=== PATIENT | female | born 1960 | race Caucasian/White ===

== ENCOUNTER 2016-10-30 12:21 | Observation (INO) | payer MEDICARE ==
--- NOTE | 2016-10-30 12:54 | EDM.PDOC ---
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 She states that this happens when her magnesium level is low. History of IBS with diarrhea leading to hypomagnesemia requiring frequent IV magnesium infusions. She reports a complex medical history since March 2016 when she was hospitalized for an infection to a port that was placed in her right upper chest and developed an abscess in her right neck. 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 She now has an implanted recording device placed below her sternum. She denies chest pain shortness of breath and difficulty breathing. She admits to having a twinge to her left substernal area which has been constant for the past 24 hours. She states that this pain is consistent with when her magnesium level has been low in the past. Patient has felt feverish for the past 24 hours and wants to be checked for infection. Since her hospitalizations within the last year she is very vigilant about being evaluated when she feels feverish. She has not checked her temperature. Denies headaches sore throat earaches. Admits to nausea. No abdominal pain or vomiting. No burning with urination blood in her urine or urinary frequency. No change in her bowels. No swelling to her feet or lower legs.] Review of systems: As per history of present illness and below otherwise all systems reviewed and negative. Past medical history: As per history of present illness and as reviewed below otherwise noncontributory. Surgical history: As per history of present illness and as reviewed below otherwise noncontributory. Social history: No reported history of drug or alcohol abuse. Family history: As per history of present illness and as reviewed below otherwise noncontributory. Physical exam: HEENT: Atraumatic, normocephalic. Oral mucous membranes are pink and moist. neck supple, nontender. Lungs: Clear to auscultation, breath sounds equal bilaterally, chest nontender. Heart: S1S2, regular rate and rhythm. Abdomen: Soft, nondistended, nontender. Negative for masses guarding or rebound. Negative for costovertebral tenderness. Pelvis: Stable nontender. Genitourinary: Deferred. Rectal: Deferred. Extremities: Atraumatic, negative for cords or calf pain. No cyanosis or edema to feet or lower legs. Neurovascular unremarkable. Neuro: Awake, alert, oriented. Is pleasant and conversational. Appears to be Reliable historian. Motor and sensory unremarkable throughout. Exam nonfocal. Diagnostics: [CBC, CMP, lactic acid, urinalysis, urine culture, ammonia level, chest x-ray EKG, troponin] Therapeutics: [Zofran 4 mg IV] Impression: [Chest pain, hypomagnesemia] Plan: [Magnesium level 0.9. EKG shows normal sinus rhythm. No acute changes or ST elevation. Discussed patient's condition with Dr. Fisher who agrees to observe patient overnight with telemetry. Patient is in agreement with this plan.] Definitive disposition and diagnosis as appropriate pending reevaluation and review of above. chest tightness Pain Score (Numeric/FACES): 7 - Related Data Allergies Allergy/AdvReac Type Severity Reaction Status Date / Time amlodipine Allergy Joint Pain Verified 10/30/16 12:25 chlorpromazine Allergy Hallucinati Verified 10/30/16 12:25 [From Thorazine] ons codeine Allergy Airway Verified 10/30/16 12:25 Tightness hydromorphone Allergy Rash Verified 10/30/16 12:25 oxycodone HCl [From Percocet] Allergy Hallucinati Verified 10/30/16 12:25 ons pregabalin [From Lyrica] Allergy Joint Pain Verified 10/30/16 12:25 rofecoxib [From Vioxx] Allergy Joint Pain Verified 10/30/16 12:25 statins Allergy Nausea and Uncoded 10/30/16 12:25 Vomiting Home Meds: Home Meds ALPRAZolam [Alprazolam] 0.5 mg PO BID 10/30/16 [History] Carvedilol 25 mg PO BID 10/30/16 [History] Lisinopril 10 mg PO BEDTIME 10/30/16 [History] Omeprazole 20 mg PO BIDAC 10/30/16 [History] Ondansetron [IMW: Ondansetron ODT] 4 mg PO .EVERY 6 HOURS PRN 10/30/16 [History] Warfarin Sodium [Jantoven] 5 mg PO ASDIRECTED 10/30/16 [History] metFORMIN HCl [Metformin HCl] 1,000 mg PO BID 10/30/16 [History] Past Medical History - Past Health History Medical/Surgical History: Denies Medical/Surgical History HEENT History: Reports: None Cardiovascular History: Reports: Hypertension, [place] Respiratory History: Reports: Asthma Gastrointestinal History: Reports: GERD, Irritable Bowel Syndrome Genitourinary History: Reports: None 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: , Other (See Below) Other OB/BYN History: vaginal ablation Musculoskeletal History: Reports: None Other Musculoskeletal History: 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 feet Neurological History: Reports: Migraines, Neuropathy, Peripheral Psychiatric History: Reports: None Other Psychiatric History: Claustrophobic Endocrine/Metabolic History: Reports: Diabetes, Type II Hematologic History: Reports: None Other Hematologic History: Low Magnesium Immunologic History: Reports: None Oncologic (Cancer) History: Reports: None Dermatologic History: Reports: None - Infectious Disease History Infectious Disease History: Reports: MRSA - Past Surgical History Cardiovascular Surgical History: Reports: Coronary Artery Stent, Pacer Female Surgical History: Reports: None Neurological Surgical History: Reports: Discectomy, Lumbar Spine Musculoskeletal Surgical History: Reports: Other (See Below) Social & Family History - Family History Family Medical History: Noncontributory Cardiac: Reports: Hypertension, [place] Neurological: Reports: TIA Psychiatric: Reports: Anxiety, Depression Endocrine/Metabolic: Reports: Diabetes, type II Oncologic: Reports: Brain, Other (See Below) Other Oncologic Family History: Spinova spindle - Tobacco Use Smoking Status *Q: Never Smoker Second Hand Smoke Exposure: No - Alcohol Use Days Per Week of Alcohol Use: 0 - Recreational Drug Use Recreational Drug Use: No ED ROS GENERAL - Review of Systems Review Of Systems: ROS reveals no pertinent complaints other than HPI. ED EXAM, GENERAL - Physical Exam Exam: See Below Course - Vital Signs Last Recorded V/S: Last Vital Signs Temp 97.8 F 10/30/16 12:26 Pulse 73 10/30/16 16:04 Resp 16 10/30/16 16:04 BP 124/65 10/30/16 16:04 Pulse Ox 94 L 10/30/16 16:04 - Orders/Labs/Meds Orders: Active Orders 24 hr Category Date Time Status EKG Documentation Completion [RC] STAT Care 10/30/16 12:51 Active Medication Orders Acetaminophen (Tylenol) 650 mg PO Q4H PRN PRN Reason: Pain (Mild 1-3)/fever Alprazolam (Xanax) 0.5 mg PO BID [facility] Carvedilol (Coreg) 25 mg PO BID [facility] Cephalexin (Keflex) 500 mg PO Q6HR [facility] Docusate Sodium (Colace) 100 mg PO BID PRN PRN Reason: Constipation Magnesium Sulfate 4 gm/ Premix 100 mls @ 50 mls/hr IV ONETIME ONE Stop: 10/30/16 16:43 Last Admin: 10/30/16 15:54 Dose: 50 mls/hr Sodium Chloride (Normal Saline) 1,000 mls @ 50 mls/hr IV NOW STA Stop: 10/31/16 11:48 Last Admin: 10/30/16 15:55 Dose: 50 mls/hr Lisinopril (Prinivil) 10 mg PO BEDTIME [facility] Metformin HCl (Glucophage) 1,000 mg PO BID [facility] Omeprazole (Omeprazole) 20 mg PO BIDAC [facility] Ondansetron HCl (Zofran Odt) 4 mg PO Q4H PRN PRN Reason: nausea, able to take PO Sodium Chloride (Saline Flush) 10 ml FLUSH ASDIRECTED PRN PRN Reason: Keep Vein Open Sodium Chloride (Saline Flush) 2.5 ml FLUSH ASDIRECTED PRN PRN Reason: Keep Vein Open Temazepam (Restoril) 15 mg PO BEDTIME PRN PRN Reason: Sleep Warfarin Sodium (Coumadin) 5 mg PO ASDIRECTED [facility] Labs: Laboratory Tests 10/30/16 10/30/16 10/30/16 Range/Units 12:30 12:30 12:30 WBC 8.94 (4.0-11.0) K/uL RBC 3.80 L (4.30-5.90) M/uL Hgb 10.9 L (12.0-16.0) g/dL Hct 32.4 L (36.0-46.0) % MCV 85.3 (80.0-98.0) fL MCH 28.7 (27.0-32.0) pg MCHC 33.6 (31.0-37.0) g/dL RDW Std Deviation 50.4 (28.0-62.0) fl RDW Coeff of Nay 16 H (11.0-15.0) % Plt Count 250 (150-400) K/uL MPV 8.90 (7.40-12.00) fL Neut % (Auto) 58.6 (48.0-80.0) % Lymph % (Auto) 31.2 (16.0-40.0) % [place] % (Auto) 7.3 (0.0-15.0) % Eos % (Auto) 2.5 (0.0-7.0) % Baso % (Auto) 0.4 (0.0-1.5) % Neut # (Auto) 5.2 (1.4-5.7) K/uL Lymph # (Auto) 2.8 H (0.6-2.4) K/uL [place] # (Auto) 0.7 (0.0-0.8) K/uL Eos # (Auto) 0.2 (0.0-0.7) K/uL Baso # (Auto) 0.0 (0.0-0.1) K/uL Nucleated RBC % 0.0 /100WBC Nucleated RBCs # 0 K/uL INR (0.86-1.11) Lactate 1.8 (0.20-2.00) mmol/L Sodium 135 L (136-146) mmol/L Potassium 4.8 (3.5-5.1) mmol/L Chloride 103 (98-110) mmol/L Carbon Dioxide 20 L (21-31) mmol/L BUN 20 (6.0-23.0) mg/dL Creatinine 0.9 (0.6-1.5) mg/dL Est Cr Clr Drug Dosing 82.46 mL/min Estimated GFR (MDRD) > 60.0 ml/min Glucose 119 H (60-110) mg/dL Calcium 9.3 (8.8-10.8) mg/dL Magnesium (1.5-2.3) mEq/L Total Bilirubin 0.3 (0.1-1.5) mg/dL AST 9 (5-40) IU/L ALT 11 (8-54) IU/L Alkaline Phosphatase 63 (40-150) Troponin I (0.0-0.29) NG/ML Total Protein 7.6 (6.0-8.0) g/dL Albumin 4.1 (3.5-5.0) g/dL Globulin 3.5 (2.0-3.5) g/dL Albumin/Globulin Ratio 1.2 L (1.3-2.8) Urine Color Urine Appearance Urine pH (5.0-8.0) Ur Specific [place] (1.001-1.035) Urine Protein (NEGATIVE) mg/dL Urine Glucose (UA) (NEGATIVE) mg/dL Urine Ketones (NEGATIVE) mg/dL Urine Occult Blood (NEGATIVE) Urine Nitrite (NEGATIVE) Urine Bilirubin (NEGATIVE) Urine Urobilinogen (<2.0) EU/dL Ur Leukocyte Esterase (NEGATIVE) Urine RBC (0-2/HPF) Urine WBC (0-5/HPF) Ur Epithelial Cells (NONE-FEW) Urine Bacteria (NEGATIVE) 10/30/16 10/30/16 10/30/16 Range/Units 12:30 12:30 12:55 WBC (4.0-11.0) K/uL RBC (4.30-5.90) M/uL Hgb (12.0-16.0) g/dL Hct (36.0-46.0) % MCV (80.0-98.0) fL MCH (27.0-32.0) pg MCHC (31.0-37.0) g/dL RDW Std Deviation (28.0-62.0) fl RDW Coeff of Nay (11.0-15.0) % Plt Count (150-400) K/uL MPV (7.40-12.00) fL Neut % (Auto) (48.0-80.0) % Lymph % (Auto) (16.0-40.0) % [place] % (Auto) (0.0-15.0) % Eos % (Auto) (0.0-7.0) % Baso % (Auto) (0.0-1.5) % Neut # (Auto) (1.4-5.7) K/uL Lymph # (Auto) (0.6-2.4) K/uL [place] # (Auto) (0.0-0.8) K/uL Eos # (Auto) (0.0-0.7) K/uL Baso # (Auto) (0.0-0.1) K/uL Nucleated RBC % /100WBC Nucleated RBCs # K/uL INR 1.78 H (0.86-1.11) Lactate (0.20-2.00) mmol/L Sodium (136-146) mmol/L Potassium (3.5-5.1) mmol/L Chloride (98-110) mmol/L Carbon Dioxide (21-31) mmol/L BUN (6.0-23.0) mg/dL Creatinine (0.6-1.5) mg/dL Est Cr Clr Drug Dosing mL/min Estimated GFR (MDRD) ml/min Glucose (60-110) mg/dL Calcium (8.8-10.8) mg/dL Magnesium 0.9 L (1.5-2.3) mEq/L Total Bilirubin (0.1-1.5) mg/dL AST (5-40) IU/L ALT (8-54) IU/L Alkaline Phosphatase (40-150) Troponin I < 0.10 (0.0-0.29) NG/ML Total Protein (6.0-8.0) g/dL Albumin (3.5-5.0) g/dL Globulin (2.0-3.5) g/dL Albumin/Globulin Ratio (1.3-2.8) Urine Color Urine Appearance Urine pH (5.0-8.0) Ur Specific [place] (1.001-1.035) Urine Protein (NEGATIVE) mg/dL Urine Glucose (UA) (NEGATIVE) mg/dL Urine Ketones (NEGATIVE) mg/dL Urine Occult Blood (NEGATIVE) Urine Nitrite (NEGATIVE) Urine Bilirubin (NEGATIVE) Urine Urobilinogen (<2.0) EU/dL Ur Leukocyte Esterase (NEGATIVE) Urine RBC (0-2/HPF) Urine WBC (0-5/HPF) Ur Epithelial Cells (NONE-FEW) Urine Bacteria (NEGATIVE) 10/30/16 Range/Units 13:40 WBC (4.0-11.0) K/uL RBC (4.30-5.90) M/uL Hgb (12.0-16.0) g/dL Hct (36.0-46.0) % MCV (80.0-98.0) fL MCH (27.0-32.0) pg MCHC (31.0-37.0) g/dL RDW Std Deviation (28.0-62.0) fl RDW Coeff of Nay (11.0-15.0) % Plt Count (150-400) K/uL MPV (7.40-12.00) fL Neut % (Auto) (48.0-80.0) % Lymph % (Auto) (16.0-40.0) % [place] % (Auto) (0.0-15.0) % Eos % (Auto) (0.0-7.0) % Baso % (Auto) (0.0-1.5) % Neut # (Auto) (1.4-5.7) K/uL Lymph # (Auto) (0.6-2.4) K/uL [place] # (Auto) (0.0-0.8) K/uL Eos # (Auto) (0.0-0.7) K/uL Baso # (Auto) (0.0-0.1) K/uL Nucleated RBC % /100WBC Nucleated RBCs # K/uL INR (0.86-1.11) Lactate (0.20-2.00) mmol/L Sodium (136-146) mmol/L Potassium (3.5-5.1) mmol/L Chloride (98-110) mmol/L Carbon Dioxide (21-31) mmol/L BUN (6.0-23.0) mg/dL Creatinine (0.6-1.5) mg/dL Est Cr Clr Drug Dosing mL/min Estimated GFR (MDRD) ml/min Glucose (60-110) mg/dL Calcium (8.8-10.8) mg/dL Magnesium (1.5-2.3) mEq/L Total Bilirubin (0.1-1.5) mg/dL AST (5-40) IU/L ALT (8-54) IU/L Alkaline Phosphatase (40-150) Troponin I (0.0-0.29) NG/ML Total Protein (6.0-8.0) g/dL Albumin (3.5-5.0) g/dL Globulin (2.0-3.5) g/dL Albumin/Globulin Ratio (1.3-2.8) Urine Color YELLOW Urine Appearance CLEAR Urine pH 5.5 (5.0-8.0) Ur Specific [place] 1.010 (1.001-1.035) Urine Protein NEGATIVE (NEGATIVE) mg/dL Urine Glucose (UA) NEGATIVE (NEGATIVE) mg/dL Urine Ketones NEGATIVE (NEGATIVE) mg/dL Urine Occult Blood NEGATIVE (NEGATIVE) Urine Nitrite NEGATIVE (NEGATIVE) Urine Bilirubin NEGATIVE (NEGATIVE) Urine Urobilinogen 0.2 (<2.0) EU/dL Ur Leukocyte Esterase LARGE (NEGATIVE) Urine RBC 0-2 (0-2/HPF) Urine WBC 6-8 (0-5/HPF) Ur Epithelial Cells MODERATE (NONE-FEW) Urine Bacteria FEW (NEGATIVE) Meds: Medications Generic Name Dose Route Start Last Admin Trade Name Freq PRN Reason Stop Dose Admin Acetaminophen 650 mg 10/30/16 14:37 Tylenol PO Q4H PRN Pain (Mild 1-3)/fever Alprazolam 0.5 mg 10/30/16 21:00 Xanax PO BID [facility] Carvedilol 25 mg 10/30/16 21:00 Coreg PO BID [facility] Cephalexin 500 mg 10/30/16 18:00 Keflex PO Q6HR [facility] Docusate Sodium 100 mg 10/30/16 14:37 Colace PO BID PRN Constipation Magnesium Sulfate 4 gm/ Premix 100 mls @ 50 mls/hr 10/30/16 14:44 10/30/16 15 :54 IV 10/30/16 16:43 50 mls/hr ONETIME ONE Administration Sodium Chloride 1,000 mls @ 50 mls/hr 10/30/16 15:49 10/30/16 15:55 Normal Saline IV 10/31/16 11:48 50 mls/hr NOW STA Administration Lisinopril 10 mg 10/30/16 21:00 Prinivil PO BEDTIME [facility] Metformin HCl 1,000 mg 10/30/16 21:00 Glucophage PO BID [facility] Omeprazole 20 mg 10/30/16 17:00 Omeprazole PO BIDAC [facility] Ondansetron HCl 4 mg 10/30/16 14:37 Zofran Odt PO Q4H PRN nausea, able to take PO Sodium Chloride 10 ml 10/30/16 14:37 Saline Flush FLUSH ASDIRECTED PRN Keep Vein Open Sodium Chloride 2.5 ml 10/30/16 14:37 Saline Flush FLUSH ASDIRECTED PRN Keep Vein Open Temazepam 15 mg 10/30/16 14:37 Restoril PO BEDTIME PRN Sleep Warfarin Sodium 5 mg 10/30/16 15:15 Coumadin PO ASDIRECTED [facility] Discontinued Medications Generic Name Dose Route Start Last Admin Trade Name Freq PRN Reason Stop Dose Admin Ondansetron HCl 4 mg 10/30/16 14:34 10/30/16 14:44 Zofran IVPUSH 10/30/16 14:35 4 mg ONETIME ONE Administration Ondansetron HCl 4 mg 10/30/16 14:42 Zofran Odt PO .EVERY 6 HOURS PRN Nausea Warfarin Sodium 5 mg 10/31/16 14:00 Coumadin PO ASDIRECTED [facility] Departure - Departure Time of Disposition: 14:37 Disposition: Refer to Observation Condition: Good Clinical Impression: Hypomagnesemia Chest pain Qualifiers: Chest pain type: unspecified Qualified Code(s): R07.9 - Chest pain, unspecified - My Orders Last 24 Hours: My Active Orders 10/30/16 12:51 EKG Documentation Completion [RC] STAT - Assessment/Plan Last 24 Hours: My Active Orders 10/30/16 12:51 EKG Documentation Completion [RC] STAT
[2016-10-30 13:21] LABS: CHLORIDE,CL 103 mmol/L (98-110); SODIUM,NA 135 mmol/L (136-146)
[2016-10-30] MEDS ORDERED: Ondansetron 4 MG/2 ML SDV IVPUSH ONE (14:34)
[2016-10-30] MEDS ORDERED: Ondansetron 4 MG Tab.DIS PO PRN ×2 (14:37→14:42)
[2016-10-30] MEDS ORDERED: Acetaminophen 325 MG Tab PO PRN (14:37)
[2016-10-30] MEDS ORDERED: Sodium Chloride 0.9% 2.5 ML Syringe FLUSH PRN (14:37)
[2016-10-30] MEDS ORDERED: Sodium Chloride 0.9% 10 ML Syringe FLUSH PRN (14:37)
[2016-10-30] MEDS ORDERED: Temazepam 15 MG Cap PO PRN (14:37)
[2016-10-30] MEDS ORDERED: Docusate Sodium 100 MG Cap PO PRN (14:37)
[2016-10-30] MEDS ORDERED: Magnesium Sulfate/Water 4 GM in Premix Bag 1 BAG IV ONE (14:44)
[2016-10-30] MEDS ORDERED: Warfarin 5 MG Tab PO SCH (15:15)
--- NOTE | 2016-10-30 15:25 | CR ---
EXAMINATION: Two-view chest (PA and Lateral views). HISTORY: Shortness of breath. FINDINGS: The trachea is midline. The cardiomediastinal silhouette is within normal limits. No pulmonary infil trates, effusions or pneumothorax. Coronary stents noted. Mild degenerative changes are noted within the thoracic spine. IMPRESSION: No acute cardiopulmonary process.
[2016-10-30] MEDS ORDERED: Sodium Chloride 0.9% 1,000 ML IV STA (15:49)
[2016-10-30] MEDS: Omeprazole 20 MG Cap.CR PO SCH (18:47)
[2016-10-30] MEDS: Cephalexin 500 MG Cap PO SCH ×2 (18:47→22:59)
[2016-10-30] MEDS ORDERED: Magnesium Sulfate/Water 2 GM in Premix Bag 1 BAG IV ONE (19:58)
--- NOTE | 2016-10-30 20:08 | PCM.HP ---
H&P History of Present Illness - General Date of Service: 10/30/16 Admit Problem/Dx: Admission Diagnosis/Problem Admission Diagnosis/Problem Chest pain Source of Information: Patient, Provider - History of Present Illness Initial Comments - Free Text/Narative: She has a history of severe IBS with chronic diarrhea and recurrent hypomagnesemia thought secondary to GI losses. She thought that her Mg level was low because she felt that she was having "PVC 's". She also noted some vague chest discomfort which has subsequently resolved. She thinks that she might have had a recent fever for a few days. chest tightness Pain Score (Numeric/FACES): 7 - Related Data Allergies/Adverse Reactions: Allergies Allergy/AdvReac Type Severity Reaction Status Date / Time amlodipine Allergy Joint Pain Verified 10/30/16 12:25 chlorpromazine Allergy Hallucinati Verified 10/30/16 12:25 [From Thorazine] ons codeine Allergy Airway Verified 10/30/16 12:25 Tightness hydromorphone Allergy Rash Verified 10/30/16 12:25 oxycodone HCl [From Percocet] Allergy Hallucinati Verified 10/30/16 12:25 ons pregabalin [From Lyrica] Allergy Joint Pain Verified 10/30/16 12:25 rofecoxib [From Vioxx] Allergy Joint Pain Verified 10/30/16 12:25 statins Allergy Nausea and Uncoded 10/30/16 12:25 Vomiting Home Medications: Home Meds ALPRAZolam [Alprazolam] 0.5 mg PO BID 10/30/16 [History] Carvedilol 25 mg PO BID 10/30/16 [History] Furosemide [Lasix] 40 mg PO Q48H PRN 10/30/16 [History] Lisinopril 10 mg PO BEDTIME 10/30/16 [History] Omeprazole 20 mg PO BIDAC 10/30/16 [History] Ondansetron [IMW: Ondansetron ODT] 4 mg PO .EVERY 6 HOURS PRN 10/30/16 [History] Warfarin Sodium [Jantoven] 5 mg PO ASDIRECTED 10/30/16 [History] metFORMIN HCl [Metformin HCl] 1,000 mg PO BID 10/30/16 [History] Past Medical History - Past Health History Medical/Surgical History: Denies Medical/Surgical History HEENT History: Reports: None Cardiovascular History: Reports: Hypertension, CA Other Cardiovascular History: pacemaker placed for periods of asystole Respiratory History: Reports: Asthma Gastrointestinal History: Reports: GERD, Irritable Bowel Syndrome Genitourinary History: Reports: None Other Genitourinary History: lesion on left kidney STAFF ANESTHETIST History: Reports: , Other (See Below) Other OB/BYN History: vaginal ablation Musculoskeletal History: Reports: None Other Musculoskeletal History: 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 feet Neurological History: Reports: Migraines, Neuropathy, Peripheral Psychiatric History: Reports: None Other Psychiatric History: Claustrophobic Endocrine/Metabolic History: Reports: Diabetes, Type II Hematologic History: Reports: None, Other (See Below) (history of DVT; she is on warfarin currently) Other Hematologic History: Low Magnesium Immunologic History: Reports: None Other Immunologic History: history of recurrent sepsis Oncologic (Cancer) History: Reports: None Dermatologic History: Reports: None - Infectious Disease History Infectious Disease History: Reports: MRSA Other Infectious Disease History: history of recurrent sepsis - Past Surgical History Cardiovascular Surgical History: Reports: Coronary Artery Stent, Pacer Female Surgical History: Reports: None Neurological Surgical History: Reports: Discectomy, Lumbar Spine Musculoskeletal Surgical History: Reports: Other (See Below) Social & Family History - Family History Family Medical History: Noncontributory Cardiac: Reports: Hypertension, [place] Neurological: Reports: TIA Psychiatric: Reports: Anxiety, Depression Endocrine/Metabolic: Reports: Diabetes, type II Oncologic: Reports: Brain, Other (See Below) Other Oncologic Family History: Spinova spindle - Tobacco Use Smoking Status *Q: Never Smoker Second Hand Smoke Exposure: No - Caffeine Use Caffeine Use: Reports: Coffee, Soda, Tea - Alcohol Use Days Per Week of Alcohol Use: 0 Alcohol Use Comment: she drinks alcohol less than one time per month. - Recreational Drug Use Recreational Drug Use: No H&P Review of Systems - Review of Systems: Review Of Systems: See Below General: Reports: Fever, Chills HEENT: Denies: Sore Throat Pulmonary: Denies: Shortness of Breath, Cough, Sputum Cardiovascular: Reports: Chest Pain (as per HPI now resolved). Denies: Edema Gastrointestinal: Denies: Abdominal Pain, Black Stool, Bloody Stool, Hematemesis , Hematochezia, Melena Genitourinary: Denies: Dysuria, Frequency, Hematuria Exam - Exam Exam: See Below - Vital Signs Vital Signs: Last Vital Signs Temp 97.7 F 10/30/16 16:00 Pulse 73 10/30/16 16:04 Resp 16 10/30/16 16:04 BP 124/65 10/30/16 16:04 Pulse Ox 94 L 10/30/16 16:04 Weight: 102.965 kg - Exam General: Alert, Oriented HEENT: EOMI, Mucosa Moist & [place] Neck: Supple, Trachea Midline Lungs: Clear to Auscultation, Normal Respiratory Effort Cardiovascular: Regular Rate, Regular Rhythm Abdomen: Soft. No: Distention, Tenderness (Female) Exam: Deferred Rectal (Female) Exam: Deferred Extremities: No: Calf Tenderness, Edema Neurological: Cranial Nerves Intact, Normal Speech Neuro Extensive - Mental Status: Normal Mood/Affect Neuro Extensive - Motor, Sensory, Reflexes: No: Facial palsy (L), Facial Palsy ( R), Hemeplagia (R), Hemeplagia (L) Psychiatric: Alert, Normal Affect. No: Depressed - Patient Data Lab Results Last 24 hrs: Laboratory Results - last 24 hr 10/30/16 10/30/16 10/30/16 Range/Units 16:10 19:05 19:05 Magnesium 1.8 (1.5-2.3) mEq/L Ammonia 156 H (14-68) UG/DL Troponin I < 0.10 (0.0-0.29) NG/ML Result Diagrams: 10/30/16 12:30 10/30/16 12:30 Imaging Impressions Last 24 hrs: sinus rhythm; RBBB; LAFB ; borderline LVH CXR: No acute disease *Q Meaningful Use (ADM) - VTE *Q VTE Criteria *Q: - Stroke *Q Stroke Criteria *Q: - AMI *Q AMI Criteria *Q: - Problem List (1) Serum ammonia increased SNOMED Code(s): 2241090 ICD Code: E72.20 - DISORDER OF UREA CYCLE METABOLISM, UNSPECIFIED Status: Acute Current Visit: Yes (2) Chest pain SNOMED Code(s): 75221878 ICD Code: R07.9 - CHEST PAIN, UNSPECIFIED Status: Acute Current Visit: Yes Qualifiers: Chest pain type: unspecified Qualified Code(s): R07.9 - Chest pain, unspecified (3) Hypomagnesemia SNOMED Code(s): 375643495 ICD Code: E83.42 - HYPOMAGNESEMIA Status: Acute Current Visit: Yes (4) History of DVT (deep vein thrombosis) SNOMED Code(s): 679452235 ICD Code: Z86.718 - PERSONAL HISTORY OF OTHER VENOUS THROMBOSIS AND EMBOLISM Status: Acute Current Visit: Yes (5) UTI (urinary tract infection) SNOMED Code(s): 95396428 ICD Code: N39.0 - URINARY TRACT INFECTION, SITE NOT SPECIFIED Status: Acute Current Visit: Yes Problem List Initiated/Reviewed/Updated: Yes Orders Last 24hrs: Active Orders 24 hr Category Date Time Status Patient Status [ADT] Routine ADT 10/30/16 14:37 Active Oxygen Therapy [RC] PRN Care 10/30/16 14:37 Active Oxygen Therapy [RC] PRN Care 10/30/16 14:44 Active Telemetry Monitoring [Cardiac Monitoring] [RC] . Care 10/30/16 14:40 Active DIRECTED VTE/DVT Education [RC] PER UNIT ROUTINE Care 10/30/16 14:37 Active VTE/DVT Education [RC] PER UNIT ROUTINE Care 10/30/16 14:44 Active Vital Signs [RC] Q4H Care 10/30/16 14:37 Active Vital Signs [RC] Q4H Care 10/30/16 14:44 Active Regular Diet [DIET] Diet 10/30/16 Dinner Active Abdomen Ltd [US] Routine Exams 10/31/16 07:00 Ordered AMMONIA VENOUS [CHEM] AM Lab 11/01/16 05:11 Ordered BASIC METABOLIC PANEL,BMP [CHEM] AM Lab 10/31/16 05:11 Ordered CBC WITH AUTO DIFF [HEME] Timed Lab 10/31/16 05:00 Ordered COMPREHENSIVE METABOLIC PN,CMP [CHEM] AM Lab 11/01/16 05:11 Ordered INR,PT,PROTHROMBIN TIME [COAG] Routine Lab 10/31/16 07:00 Ordered MAGNESIUM [CHEM] Routine Lab 11/01/16 07:00 Ordered TROPONIN I [CHEM] Q6H Lab 10/31/16 01:00 Ordered TROPONIN I [CHEM] Q6H Lab 10/31/16 07:00 Ordered ALPRAZolam [Xanax] Med 10/30/16 21:00 Active 0.5 mg PO BID Acetaminophen [Tylenol] Med 10/30/16 14:37 Active 650 mg PO Q4H PRN Carvedilol [Coreg] Med 10/30/16 21:00 Active 25 mg PO BID Cephalexin [Keflex] Med 10/30/16 18:00 Active 500 mg PO Q6HR Ciprofloxacin [Ciprofloxacin HCl] Med 10/30/16 21:00 Ordered 500 mg PO BID Docusate Sodium [Colace] Med 10/30/16 14:37 Active 100 mg PO BID PRN Lisinopril [Prinivil] Med 10/30/16 21:00 Active 10 mg PO BEDTIME Magnesium Sulfate/Water [Magnesium Sulfate 2 GM in Med 10/30/16 19:58 Ordered Water 50 ML] 2 gm Premix Bag 1 bag IV ONETIME Omeprazole Med 10/30/16 17:00 Active 20 mg PO BIDAC Ondansetron [Zofran ODT] Med 10/30/16 14:37 Active 4 mg PO Q4H PRN Sodium Chloride 0.9% [Saline Flush] Med 10/30/16 14:37 Active 10 ml FLUSH ASDIRECTED PRN Sodium Chloride 0.9% [Saline Flush] Med 10/30/16 14:37 Active 2.5 ml FLUSH ASDIRECTED PRN Temazepam [Restoril] Med 10/30/16 14:37 Active 15 mg PO BEDTIME PRN Warfarin [Coumadin] Med 10/30/16 15:15 Active 5 mg PO ASDIRECTED metFORMIN [Glucophage] Med 10/30/16 21:00 Active 1,000 mg PO BID Saline Lock Insert [OM.PC] Routine Oth 10/30/16 14:37 Ordered Resuscitation Status Routine Resus Stat 10/30/16 14:37 Ordered Medication Orders Acetaminophen (Tylenol) 650 mg PO Q4H PRN PRN Reason: Pain (Mild 1-3)/fever Last Admin: 10/30/16 19:18 Dose: 650 mg Alprazolam (Xanax) 0.5 mg PO BID [facility] Carvedilol (Coreg) 25 mg PO BID [facility] Cephalexin (Keflex) 500 mg PO Q6HR [facility] Last Admin: 10/30/16 18:47 Dose: 500 mg Ciprofloxacin (Ciprofloxacin Hcl) 500 mg PO BID [facility] Docusate Sodium (Colace) 100 mg PO BID PRN PRN Reason: Constipation Magnesium Sulfate 2 gm/ Premix 50 mls @ 25 mls/hr IV ONETIME ONE Stop: 10/30/16 21:57 Lisinopril (Prinivil) 10 mg PO BEDTIME [facility] Metformin HCl (Glucophage) 1,000 mg PO BID [facility] Omeprazole (Omeprazole) 20 mg PO BIDAC [facility] Last Admin: 10/30/16 18:47 Dose: 20 mg Ondansetron HCl (Zofran Odt) 4 mg PO Q4H PRN PRN Reason: nausea, able to take PO Sodium Chloride (Saline Flush) 10 ml FLUSH ASDIRECTED PRN PRN Reason: Keep Vein Open Sodium Chloride (Saline Flush) 2.5 ml FLUSH ASDIRECTED PRN PRN Reason: Keep Vein Open Temazepam (Restoril) 15 mg PO BEDTIME PRN PRN Reason: Sleep Warfarin Sodium (Coumadin) 5 mg PO ASDIRECTED [facility] Last Admin: 10/30/16 18:48 Dose: 5 mg Assessment/Plan Comment:: observation Mg supplementation anticipated discharge tomorrow. Brandon Fisher MD
[2016-10-30] MEDS: Carvedilol 25 MG Tab PO SCH (20:56)
[2016-10-30] MEDS: metFORMIN 500 MG Tab PO SCH (20:56)
[2016-10-30] MEDS: Ciprofloxacin 500 MG Tab PO SCH (20:56)
[2016-10-30] MEDS: ALPRAZolam 0.5 MG Tab PO SCH (20:57)
[2016-10-30] MEDS ORDERED: Lisinopril 10 MG Tab PO SCH (21:00)
[2016-10-30] MEDS ORDERED: Acetaminophen/HYDROcodone 325-10 MG Tab PO PRN (22:06)
[2016-10-31 07:47] LABS: CHLORIDE,CL 103 mmol/L (98-110); SODIUM,NA 136 mmol/L (136-146)
[2016-10-31] MEDS: Cephalexin 500 MG Cap PO SCH ×2 (09:05→11:13)
[2016-10-31] MEDS: metFORMIN 500 MG Tab PO SCH (09:06)
[2016-10-31] MEDS: ALPRAZolam 0.5 MG Tab PO SCH (09:06)
[2016-10-31] MEDS: Carvedilol 25 MG Tab PO SCH (09:06)
[2016-10-31] MEDS: Ciprofloxacin 500 MG Tab PO SCH (09:06)
[2016-10-31] MEDS: Omeprazole 20 MG Cap.CR PO SCH (09:06)
[2016-10-31 09:07] VITALS: BP 110/64
--- NOTE | 2016-10-31 11:11 | US ---
EXAMINATION: Right upper quadrant ultrasound HISTORY: Cirrhosis COMPARISON: None TECHNIQUE: Grayscale and color Doppler images obtained of the right upper quadrant. FINDINGS: The visualized pancreas appears normal. The liver is mildly to moderately increased in gen eralized echotexture without a focal hepatic mass. Cholecystectomy. Common bile duct measures 3 mm. Right kidney measures at least 10.3 cm [id number] without evidence of hydronephrosis. No abdominal ascites. IMPRESSION: 1. Mild to moderate fatty infiltration of the liver.
[2016-10-31] MEDS ORDERED: Warfarin 5 MG, Warfarin 2.5 MG PO SCH ×2 (14:00)
[2016-10-31] MEDS ORDERED: Warfarin 5 MG Tab PO SCH (14:00)
--- NOTE | 2016-10-31 15:16 | PCM.DCSUM1 ---
Discharge Summary - Hospital Course Brief History: she was admitted with hypomagnesemia and suspected UTI. - Discharge Data Discharge Date: 10/31/16 Discharge Disposition: Home, Self-Care 01 Condition: Fair - Discharge Diagnosis/Problem(s) (1) Serum ammonia increased SNOMED Code(s): 3310580 ICD Code: E72.20 - DISORDER OF UREA CYCLE METABOLISM, UNSPECIFIED Status: Acute Current Visit: Yes (2) Chest pain SNOMED Code(s): 76014696 ICD Code: R07.9 - CHEST PAIN, UNSPECIFIED Status: Acute Current Visit: Yes Qualifiers: Chest pain type: unspecified Qualified Code(s): R07.9 - Chest pain, unspecified (3) Hypomagnesemia SNOMED Code(s): 749251016 ICD Code: E83.42 - HYPOMAGNESEMIA Status: Acute Current Visit: Yes (4) History of DVT (deep vein thrombosis) SNOMED Code(s): 094394171 ICD Code: Z86.718 - PERSONAL HISTORY OF OTHER VENOUS THROMBOSIS AND EMBOLISM Status: Acute Current Visit: Yes (5) UTI (urinary tract infection) SNOMED Code(s): 64077741 ICD Code: N39.0 - URINARY TRACT INFECTION, SITE NOT SPECIFIED Status: Acute Current Visit: Yes - Patient Summary/Data Hospital Course: She was given Magnesium sulfate intravenously . Her magnesium level went from 0.9 to 2.4 Her serum ammonia was measured in the ED because she was drowsy. It remained elevated at levels of 157 and 156 taken on two occasions. She has no history of heavy alcohol use. she was treated with rocephin and cipro for suspected UTI. Impression: hypomagnesemia on warfarin for history of PE asymptomatic elevated serum ammonia level of uncertain etiology UTI discharge home she wants to wait until she gets back home to [place] next month to see a asic engineer. keflex 500 qid x 5 days mg level with next INR Brandon Fisher MD - Discharge Plan Home Medications: Home Meds ALPRAZolam [Alprazolam] 0.5 mg PO BID 10/30/16 [History] Carvedilol 25 mg PO BID 10/30/16 [History] Furosemide [Lasix] 40 mg PO Q48H PRN 10/30/16 [History] Lisinopril 10 mg PO BEDTIME 10/30/16 [History] Omeprazole 20 mg PO BIDAC 10/30/16 [History] Ondansetron [IMW: Ondansetron ODT] 4 mg PO .EVERY 6 HOURS PRN 10/30/16 [History] Warfarin Sodium [Jantoven] 5 mg PO ASDIRECTED 10/30/16 [History] metFORMIN HCl [Metformin HCl] 1,000 mg PO BID 10/30/16 [History] Forms: ED Department Discharge Referrals: PCP,None [Primary Care Provider] - - Patient Data Vitals - Most Recent: Last Vital Signs Temp 97.5 F 10/31/16 12:00 Pulse 71 10/31/16 12:00 Resp 16 10/31/16 12:00 BP 110/64 10/31/16 12:00 Pulse Ox 97 10/31/16 12:00 Weight - Most Recent: 102.965 kg I&O - Last 24 hours: Intake & Output 10/31/16 10/31/16 10/31/16 06:59 14:59 22:59 Intake Total 500 Output Total 2100 Balance -1600 Lab Results - Last 24 hrs: Laboratory Results - last 24 hr 10/30/16 10/30/16 10/30/16 Range/Units 16:10 19:05 19:05 WBC (4.0-11.0) K/uL RBC (4.30-5.90) M/uL Hgb (12.0-16.0) g/dL Hct (36.0-46.0) % MCV (80.0-98.0) fL MCH (27.0-32.0) pg MCHC (31.0-37.0) g/dL RDW Std Deviation (28.0-62.0) fl RDW Coeff of Nay (11.0-15.0) % Plt Count (150-400) K/uL MPV (7.40-12.00) fL Neut % (Auto) (48.0-80.0) % Lymph % (Auto) (16.0-40.0) % [place] % (Auto) (0.0-15.0) % Eos % (Auto) (0.0-7.0) % Baso % (Auto) (0.0-1.5) % Neut # (Auto) (1.4-5.7) K/uL Lymph # (Auto) (0.6-2.4) K/uL [place] # (Auto) (0.0-0.8) K/uL Eos # (Auto) (0.0-0.7) K/uL Baso # (Auto) (0.0-0.1) K/uL Nucleated RBC % /100WBC Nucleated RBCs # K/uL INR (0.86-1.11) Sodium (136-146) mmol/L Potassium (3.5-5.1) mmol/L Chloride (98-110) mmol/L Carbon Dioxide (21-31) mmol/L BUN (6.0-23.0) mg/dL Creatinine (0.6-1.5) mg/dL Est Cr Clr Drug Dosing mL/min Estimated GFR (MDRD) ml/min Glucose (60-110) mg/dL Calcium (8.8-10.8) mg/dL Magnesium 1.8 (1.5-2.3) mEq/L Ammonia 156 H (14-68) UG/DL Troponin I < 0.10 (0.0-0.29) NG/ML 10/31/16 10/31/16 10/31/16 Range/Units 00:47 07:10 07:10 WBC 7.25 (4.0-11.0) K/uL RBC 3.80 L (4.30-5.90) M/uL Hgb 10.8 L (12.0-16.0) g/dL Hct 32.8 L (36.0-46.0) % MCV 86.3 (80.0-98.0) fL MCH 28.4 (27.0-32.0) pg MCHC 32.9 (31.0-37.0) g/dL RDW Std Deviation 51.7 (28.0-62.0) fl RDW Coeff of Nay 16 H (11.0-15.0) % Plt Count 225 (150-400) K/uL MPV 8.50 (7.40-12.00) fL Neut % (Auto) 50.6 (48.0-80.0) % Lymph % (Auto) 38.1 (16.0-40.0) % [place] % (Auto) 7.9 (0.0-15.0) % Eos % (Auto) 3.0 (0.0-7.0) % Baso % (Auto) 0.4 (0.0-1.5) % Neut # (Auto) 3.7 (1.4-5.7) K/uL Lymph # (Auto) 2.8 H (0.6-2.4) K/uL [place] # (Auto) 0.6 (0.0-0.8) K/uL Eos # (Auto) 0.2 (0.0-0.7) K/uL Baso # (Auto) 0.0 (0.0-0.1) K/uL Nucleated RBC % 0.0 /100WBC Nucleated RBCs # 0 K/uL INR (0.86-1.11) Sodium (136-146) mmol/L Potassium (3.5-5.1) mmol/L Chloride (98-110) mmol/L Carbon Dioxide (21-31) mmol/L BUN (6.0-23.0) mg/dL Creatinine (0.6-1.5) mg/dL Est Cr Clr Drug Dosing mL/min Estimated GFR (MDRD) ml/min Glucose (60-110) mg/dL Calcium (8.8-10.8) mg/dL Magnesium (1.5-2.3) mEq/L Ammonia (14-68) UG/DL Troponin I < 0.10 < 0.10 (0.0-0.29) NG/ML 10/31/16 10/31/16 10/31/16 Range/Units 07:10 07:10 07:10 WBC (4.0-11.0) K/uL RBC (4.30-5.90) M/uL Hgb (12.0-16.0) g/dL Hct (36.0-46.0) % MCV (80.0-98.0) fL MCH (27.0-32.0) pg MCHC (31.0-37.0) g/dL RDW Std Deviation (28.0-62.0) fl RDW Coeff of Nay (11.0-15.0) % Plt Count (150-400) K/uL MPV (7.40-12.00) fL Neut % (Auto) (48.0-80.0) % Lymph % (Auto) (16.0-40.0) % [place] % (Auto) (0.0-15.0) % Eos % (Auto) (0.0-7.0) % Baso % (Auto) (0.0-1.5) % Neut # (Auto) (1.4-5.7) K/uL Lymph # (Auto) (0.6-2.4) K/uL [place] # (Auto) (0.0-0.8) K/uL Eos # (Auto) (0.0-0.7) K/uL Baso # (Auto) (0.0-0.1) K/uL Nucleated RBC % /100WBC Nucleated RBCs # K/uL INR 1.73 H (0.86-1.11) Sodium 136 (136-146) mmol/L Potassium 4.8 (3.5-5.1) mmol/L Chloride 103 (98-110) mmol/L Carbon Dioxide 22 (21-31) mmol/L BUN 17 (6.0-23.0) mg/dL Creatinine 0.9 (0.6-1.5) mg/dL Est Cr Clr Drug Dosing 82.58 mL/min Estimated GFR (MDRD) > 60.0 ml/min Glucose 107 (60-110) mg/dL Calcium 9.6 (8.8-10.8) mg/dL Magnesium 2.4 H (1.5-2.3) mEq/L Ammonia (14-68) UG/DL Troponin I (0.0-0.29) NG/ML 10/31/16 Range/Units 08:15 WBC (4.0-11.0) K/uL RBC (4.30-5.90) M/uL Hgb (12.0-16.0) g/dL Hct (36.0-46.0) % MCV (80.0-98.0) fL MCH (27.0-32.0) pg MCHC (31.0-37.0) g/dL RDW Std Deviation (28.0-62.0) fl RDW Coeff of Nay (11.0-15.0) % Plt Count (150-400) K/uL MPV (7.40-12.00) fL Neut % (Auto) (48.0-80.0) % Lymph % (Auto) (16.0-40.0) % [place] % (Auto) (0.0-15.0) % Eos % (Auto) (0.0-7.0) % Baso % (Auto) (0.0-1.5) % Neut # (Auto) (1.4-5.7) K/uL Lymph # (Auto) (0.6-2.4) K/uL [place] # (Auto) (0.0-0.8) K/uL Eos # (Auto) (0.0-0.7) K/uL Baso # (Auto) (0.0-0.1) K/uL Nucleated RBC % /100WBC Nucleated RBCs # K/uL INR (0.86-1.11) Sodium (136-146) mmol/L Potassium (3.5-5.1) mmol/L Chloride (98-110) mmol/L Carbon Dioxide (21-31) mmol/L BUN (6.0-23.0) mg/dL Creatinine (0.6-1.5) mg/dL Est Cr Clr Drug Dosing mL/min Estimated GFR (MDRD) ml/min Glucose (60-110) mg/dL Calcium (8.8-10.8) mg/dL Magnesium (1.5-2.3) mEq/L Ammonia 157 H (14-68) UG/DL Troponin I (0.0-0.29) NG/ML Med Orders - Current: Current Medications Acetaminophen (Tylenol) 650 mg PO Q4H PRN PRN Reason: Pain (Mild 1-3)/fever Last Admin: 10/30/16 19:18 Dose: 650 mg Hydrocodone Bitart/Acetaminophen ([place] 325-10 Mg) 1 tab PO Q3H PRN PRN Reason: Pain Last Admin: 10/30/16 22:58 Dose: 1 tab Alprazolam (Xanax) 0.5 mg PO BID [facility] Last Admin: 10/31/16 09:06 Dose: 0.5 mg Carvedilol (Coreg) 25 mg PO BID [facility] Last Admin: 10/31/16 09:06 Dose: 25 mg Cephalexin (Keflex) 500 mg PO Q6HR [facility] Last Admin: 10/31/16 11:13 Dose: 500 mg Ciprofloxacin (Ciprofloxacin Hcl) 500 mg PO BID [facility] Last Admin: 10/31/16 09:06 Dose: 500 mg Docusate Sodium (Colace) 100 mg PO BID PRN PRN Reason: Constipation Lisinopril (Prinivil) 10 mg PO BEDTIME [facility] Last Admin: 10/30/16 20:57 Dose: 10 mg Metformin HCl (Glucophage) 1,000 mg PO BID [facility] Last Admin: 10/31/16 09:06 Dose: 1,000 mg Omeprazole (Omeprazole) 20 mg PO BIDAC [facility] Last Admin: 10/31/16 09:06 Dose: 20 mg Ondansetron HCl (Zofran Odt) 4 mg PO Q4H PRN PRN Reason: nausea, able to take PO Sodium Chloride (Saline Flush) 10 ml FLUSH ASDIRECTED PRN PRN Reason: Keep Vein Open Sodium Chloride (Saline Flush) 2.5 ml FLUSH ASDIRECTED PRN PRN Reason: Keep Vein Open Temazepam (Restoril) 15 mg PO BEDTIME PRN PRN Reason: Sleep Warfarin Sodium (Coumadin) 5 mg PO SuMoWeThFrSa@1400 [facility] Warfarin Sodium 5 mg/ Warfarin (Sodium 2.5 mg) 7.5 mg PO Tu@1400 [facility] Last Admin: 10/31/16 13:05 Dose: 7.5 mg Discontinued Medications Magnesium Sulfate 4 gm/ Premix 100 mls @ 50 mls/hr IV ONETIME ONE Stop: 10/30/16 16:43 Last Admin: 10/30/16 15:54 Dose: 50 mls/hr Sodium Chloride (Normal Saline) 1,000 mls @ 50 mls/hr IV NOW STA Stop: 10/31/16 11:48 Last Admin: 10/30/16 15:55 Dose: 50 mls/hr Magnesium Sulfate 2 gm/ Premix 50 mls @ 25 mls/hr IV ONETIME ONE Stop: 10/30/16 21:57 Last Admin: 10/30/16 20:54 Dose: 25 mls/hr Ondansetron HCl (Zofran) 4 mg IVPUSH ONETIME ONE Stop: 10/30/16 14:35 Last Admin: 10/30/16 14:44 Dose: 4 mg Ondansetron HCl (Zofran Odt) 4 mg PO .EVERY 6 HOURS PRN PRN Reason: Nausea Warfarin Sodium (Coumadin) 5 mg PO ASDIRECTED [facility] Warfarin Sodium (Coumadin) 5 mg PO ASDIRECTED [facility] Last Admin: 10/30/16 18:48 Dose: 5 mg *Q Meaningful Use (DIS) - VTE *Q VTE Criteria *Q: - Stroke *Q Stroke Criteria *Q: - AMI *Q AMI Criteria *Q:
[2016-11-01] MEDS ORDERED: Warfarin 5 MG Tab PO SCH (14:00)
== END 2016-10-31 16:15 | disposition home or self-care (01) ==
LOC: MW.ED 12:21 → MW.MS 14:36
PROVIDERS: ADMIT Family Medicine; ATTEND Family Medicine
DX: R07.89 Other chest pain (principal); E72.20 Disorder of urea cycle metabolism, unspecified; E83.42 Hypomagnesemia; N39.0 Urinary tract infection, site not specified; I25.2 Old myocardial infarction; I10 Essential (primary) hypertension; J45.909 Unspecified asthma, uncomplicated; K21.9 Gastro-esophageal reflux disease without esophagitis; Z95.5 Presence of coronary angioplasty implant and graft; F32.9 Major depressive disorder, single episode, unspecified; F41.9 Anxiety disorder, unspecified; Z86.718 Personal history of other venous thrombosis and embolism; E11.9 Type 2 diabetes mellitus without complications; Z79.84 Long term (current) use of oral hypoglycemic drugs; Z79.899 Other long term (current) drug therapy; Z86.73 Personal history of transient ischemic attack (TIA), and cerebral infarction without residual deficits; Z98.890 Other specified postprocedural states
CPT/HCPCS: 36415; 71020; 76705; 80048; 80053; 81001; 82140; 83605; 83735; 84484; 85025; 85610; 87086; 93005; 96365; 96366; 96375; 99285; A9270; G0378; J2405; J3475; J7040; 96374

== ENCOUNTER 2023-04-17 19:06 | Observation (INO) | payer MEDICARE ==
[2023-04-17] MEDS ORDERED: Sodium Chloride 0.9% 10 ML Syringe FLUSH PRN (20:12)
[2023-04-17] MEDS ORDERED: Sodium Chloride 0.9% 2.5 ML Syringe FLUSH PRN (20:12)
[2023-04-17 20:57] LABS: BASOPHILS ABSOLUTE AUTO 0.04 K/uL (0.00-0.20); BASOPHILS PERCENT AUTO 0.6 % (0.0-1.0); EOSINOPHILS ABSOLUTE AUTO 0.17 K/uL (0.00-0.45); EOSINOPHILS PERCENT AUTO 2.4 % (0.0-6.0); HEMATOCRIT 34.2 % (37.0-47.0); HEMOGLOBIN 11.6 g/dL (12.0-16.0); IMMATURE GRAN ABSOLUTE AUTO 0.04 K/uL (0.00-0.05); IMMATURE GRAN PERCENT AUTO 0.6 % (0.0-0.4); LYMPHOCYTES PERCENT AUTO 23.6 % (24.0-44.0); MEAN CORPUSCULAR HEMOGLOBIN 29.8 pg (28.0-32.0); MEAN CORPUSCULAR HGB CONC 33.9 g/dL (32.0-36.0); MEAN CORPUSCULAR VOLUME 87.9 fL (83.0-99.0); MEAN PLATELET VOLUME 9.1 fL (9.4-12.3); MONOCYTES ABSOLUTE AUTO 0.96 K/uL (0.00-0.80); MONOCYTES PERCENT AUTO 13.3 % (0.0-8.0); NEUTROPHILS ABSOLUTE AUTO 4.29 K/uL (1.80-7.70); NEUTROPHILS PERCENT AUTO 59.5 % (41.0-71.0); PLATELET COUNT,PLT 197 K/uL (150-400); RED BLOOD CELL COUNT 3.89 M/uL (4.10-5.30)
[2023-04-17 21:07] LABS: INR 2.8 (0.86-1.11)
[2023-04-17 21:17] LABS: CALCIUM 8.2 mg/dL (8.5-10.1); CARBON DIOXIDE,CO2 27.7 mmol/L (21.0-32.0); CREATININE 1.1 mg/dL (0.6-1.0); EST CRCL DRUG DOSING (CG) 62.76 mL/min; POTASSIUM,K 4.1 mmol/L (3.5-5.1)
[2023-04-17] MEDS ORDERED: REMDESIVIR 200 MG in Sodium Chloride 0.9% 250 ML IV ONE (23:05)
[2023-04-17] MEDS ORDERED: Dexamethasone 4 MG/ML SDV IVPUSH ONE (23:23)
[2023-04-17] MEDS ORDERED: Albuterol/Ipratropium 3.0-0.5 MG/3 ML Neb Soln NEB PRN (23:46)
[2023-04-17] MEDS ORDERED: Acetaminophen 325 MG Tab PO PRN (23:52)
[2023-04-17] MEDS ORDERED: Ondansetron 4 MG/2 ML SDV IVPUSH PRN (23:54)
[2023-04-17] MEDS ORDERED: 50% Dextrose in Water 50 ML Syringe IVPUSH PRN (23:56)
[2023-04-17] MEDS ORDERED: Sodium Chloride 0.9% 1,000 ML IV ONE (23:56)
[2023-04-17] MEDS ORDERED: Glucagon,Human Recombinant 1 MG Vial IM PRN (23:56)
[2023-04-18] MEDS ORDERED: Magnesium Sulfate/Water 2 GM in Premix Bag 1 BAG IV ONE (01:50)
[2023-04-18] MEDS: Pantoprazole 40 MG in Sodium Chloride 0.9% 10 ML IVPUSH SCH ×2 (02:20→09:34)
[2023-04-18] MEDS ORDERED: Magnesium Oxide 400 MG Tab PO ONE (05:37)
[2023-04-18 06:17] LABS: BASOPHILS ABSOLUTE AUTO 0.03 K/uL (0.00-0.20); BASOPHILS PERCENT AUTO 0.6 % (0.0-1.0); EOSINOPHILS ABSOLUTE AUTO 0.01 K/uL (0.00-0.45); EOSINOPHILS PERCENT AUTO 0.2 % (0.0-6.0); HEMATOCRIT 33.8 % (37.0-47.0); HEMOGLOBIN 11.2 g/dL (12.0-16.0); IMMATURE GRAN ABSOLUTE AUTO 0.06 K/uL (0.00-0.05); IMMATURE GRAN PERCENT AUTO 1.1 % (0.0-0.4); LYMPHOCYTES ABSOLUTE AUTO 0.69 K/uL (1.00-4.80); LYMPHOCYTES PERCENT AUTO 12.8 % (24.0-44.0); MEAN CORPUSCULAR HEMOGLOBIN 29.4 pg (28.0-32.0); MEAN CORPUSCULAR HGB CONC 33.1 g/dL (32.0-36.0); MEAN CORPUSCULAR VOLUME 88.7 fL (83.0-99.0); MEAN PLATELET VOLUME 9.5 fL (9.4-12.3); MONOCYTES PERCENT AUTO 3.7 % (0.0-8.0); NEUTROPHILS PERCENT AUTO 81.6 % (41.0-71.0); PLATELET COUNT,PLT 184 K/uL (150-400); RED BLOOD CELL COUNT 3.81 M/uL (4.10-5.30); WHITE BLOOD CELL COUNT,WBC 5.39 K/uL (3.9-11.3)
[2023-04-18 06:45] LABS: A/G RATIO 0.9 (0.9-1.6); BILIRUBIN DIRECT 0.1 mg/dL (0.0-0.5); BILIRUBIN TOTAL 0.3 mg/dL (0.2-1.0); CALCIUM 8.3 mg/dL (8.5-10.1); CARBON DIOXIDE,CO2 25.4 mmol/L (21.0-32.0); CREATININE 1.5 mg/dL (0.6-1.0); EST CRCL DRUG DOSING (CG) 46.03 mL/min; MAGNESIUM 1.8 mg/dL (1.8-2.4); POTASSIUM,K 5.1 mmol/L (3.5-5.1); PROTEIN TOTAL,TP 6.4 g/dL (6.4-8.2)
[2023-04-18] MEDS ORDERED: Metoprolol Succinate 100 MG Tab.ER PO SCH (09:00)
[2023-04-18] MEDS ORDERED: Nirmatrelvir/Ritonavir 150 MG/100 MG Dose Pack PO SCH (09:00)
[2023-04-18] MEDS ORDERED: Dexamethasone 4 MG Tab PO SCH (09:00)
[2023-04-18] MEDS ORDERED: Dexamethasone 4 MG/ML SDV IVPUSH SCH (09:00)
[2023-04-18] MEDS ORDERED: Isosorbide Mononitrate 30 MG Tab.ER PO SCH (09:00)
[2023-04-18] MEDS ORDERED: Enoxaparin 40 MG/0.4 ML Syringe SUBCUT SCH (09:00)
[2023-04-18] MEDS ORDERED: Clopidogrel 75 MG Tab PO SCH (09:00)
[2023-04-18 09:24] VITALS: PULSE 64
[2023-04-18] MEDS: Insulin Aspart 100 Units/ML 3 ML Pen SUBCUT SCH ×2 (09:30→11:44)
[2023-04-18] MEDS ORDERED: Benzonatate 100 MG Cap PO SCH (14:00)
[2023-04-18] MEDS ORDERED: Warfarin 5 MG Tab PO SCH (14:00)
[2023-04-18] MEDS ORDERED: REMDESIVIR 100 MG in Sodium Chloride 0.9% 100 ML IV SCH ×2 (14:00→21:00)
[2023-04-18 15:33] VITALS: BP 163/64
[2023-04-19] MEDS ORDERED: Warfarin 5 MG Tab PO SCH (14:00)
[2023-04-22] MEDS ORDERED: Warfarin 5 MG Tab PO SCH (14:00)
== END 2023-04-18 15:35 | disposition home or self-care (01) ==
LOC: MW.ED 19:06 → MW.MS 23:17
PROVIDERS: ADMIT Family Medicine; ATTEND Family Medicine
DX: U07.1 COVID-19 (principal); J12.82 Pneumonia due to coronavirus disease 2019; N17.9 Acute kidney failure, unspecified; J45.909 Unspecified asthma, uncomplicated; I11.0 Hypertensive heart disease with heart failure; I50.9 Heart failure, unspecified; E11.21 Type 2 diabetes mellitus with diabetic nephropathy; I25.2 Old myocardial infarction; K21.9 Gastro-esophageal reflux disease without esophagitis; I25.10 Atherosclerotic heart disease of native coronary artery without angina pectoris; I48.91 Unspecified atrial fibrillation; F41.9 Anxiety disorder, unspecified; Z95.5 Presence of coronary angioplasty implant and graft; Z79.01 Long term (current) use of anticoagulants; Z79.02 Long term (current) use of antithrombotics/antiplatelets; Z79.899 Other long term (current) drug therapy; Z88.5 Allergy status to narcotic agent; Z88.8 Allergy status to other drugs, medicaments and biological substances
CPT/HCPCS: 36415; 80048; 80053; 82248; 82947; 83735; 83880; 84484; 85025; 85610; 93005; 96361; 96365; 96366; 96367; 96375; 96376; 99285; A9270; C9113; G0378; J0248; J1100; J1815; J3475; J3490; J7030; J7050; 99284